=== PATIENT | male | born 1985 | race Caucasian/White ===

== ENCOUNTER 2018-01-11 18:50 | Emergency (ER) | payer OTHER ==
[~2018-01-11] VITALS: Ht 172.7 cm; Wt 86.2 kg
[~2018-01-11 18:50] MED LIST: FLOMAX0.4 MG PO; HYDROCODONE BIT1 T11 PO; Motrin,Rufen800 MG PO
[2018-01-11] MEDS ORDERED: VISTARIL25 MG PO (19:13)
== END 2018-01-11 20:42 | disposition left against medical advice (07) ==
LOC: ED 18:50
DX: F41.9 Anxiety disorder, unspecified (principal)